=== PATIENT | female | born 1960 | race Caucasian/White ===

== ENCOUNTER 2016-05-04 06:50 | Observation (INO) | payer OTHER ==
[~2016-05-04] VITALS: Ht 175.3 cm; Wt 71.7 kg
[2016-05-04 07:49] LABS: HEMATOCRIT 41.9 % (36.0-46.0); MCH 31.6 PG (29.0-34.0); MCHC 34.1 G/DL (30.0-36.0); MCV 92.5 FL (83-99); MEAN PLAT.VOLUME 10.6 uM^3 (9.5-12.4); PLATELET COUNT 211 K/uL (156-360); RBC DIS.WIDTH-CV 12.7 % (11.8-14.6); RBC DIS.WIDTH-SD 41.9 % (39-53); RED BLOOD COUNT 4.53 M/uL (3.80-5.20); WHITE BLOOD COUNT 6.5 K/uL (4.1-10.2)
[2016-05-04 08:27] LABS: ANION GAP 8 MEQ/L (2-14); CHLORIDE 107 MEQ/L (99-109); POTASSIUM 3.9 MEQ/L (3.7-5.4); SAMPLE HEMOLYSIS CHECK 0; SAMPLE ICTERIC CHECK 0; SAMPLE LIPEMIA CHECK 0; SODIUM 142 MEQ/L (136-147)
[2016-05-04 08:32] LABS: GFR ESTIMATE (CALCULATED) > 59 mL/min/; GLUCOSE 84 mg/dL (70-99); UREA NITROGEN (BUN) 21 mg/dL (9-23)
[2016-05-04 08:35] LABS: TROP-I INTERPRETATION NEGATIVE; TROPONIN-I < 0.01 ng/mL (0.0-0.30)
[2016-05-04] MEDS ORDERED: ONE DAILY FOR1 EAC3 PO (10:36)
[2016-05-04] MEDS ORDERED: CALCIUM 600 +1 EAC9 PO (10:37)
[2016-05-04] MEDS ORDERED: POTASSIUM-9999 MG PO (10:38)
[2016-05-04] MEDS ORDERED: VITAMIN D31000 UNIT PO (10:38)
[2016-05-04] MEDS ORDERED: COLACE100 MG PO (10:39)
[2016-05-04 14:57] VITALS: BP 132/70
[2016-05-04 18:25] LABS: TROP-I INTERPRETATION NEGATIVE; TROPONIN-I < 0.01 ng/mL (0.0-0.30)
[2016-05-04 18:41] LABS: HDL CHOLESTEROL 42 MG/DL (Desirable>=50); LDL CHOLESTEROL 133 mg/dL (Desirable<100); NON-HDL CHOLESTEROL 149 mg/dL (Desirable<160); TOTAL CHOLESTEROL 191 mg/dL (Desirable<200); TRIGLYCERIDES 82 MG/DL (Normal: <150)
[2016-05-04 18:55] LABS: Estimated Average Glucose 117 mg/dL (70-123); HEMOGLOBIN A1c (GLYCOHEMOGLOB) 5.7 % HGB (Below 5.7)
[2016-05-04 19:00] VITALS: BP 115/70
[2016-05-04 22:20] LABS: TROP-I INTERPRETATION NEGATIVE; TROPONIN-I < 0.01 ng/mL (0.0-0.30)
[2016-05-05 05:06] VITALS: BP 133/80
[2016-05-05 07:40] VITALS: BP 108/63
[2016-05-05 11:33] VITALS: BP 128/69
[2016-05-05] MEDS ORDERED: ATORVASTATIN CA20 MG PO (12:03)
[2016-05-05] MEDS ORDERED: TOPIRAMATE25 MG PO (12:03)
== END 2016-05-05 15:59 | disposition home or self-care (01) ==
LOC: EME 06:50 → 5WEST 12:48 → EDOF 12:48 → 5WEST 14:45
PROVIDERS: Internal Medicine
DX: R07.9 Chest pain, unspecified (principal); R93.0 Abnormal findings on diagnostic imaging of skull and head, not elsewhere classified; I65.23 Occlusion and stenosis of bilateral carotid arteries; R42 Dizziness and giddiness; R26.89 Other abnormalities of gait and mobility; F17.200 Nicotine dependence, unspecified, uncomplicated; Z83.3 Family history of diabetes mellitus; Z82.3 Family history of stroke
CPT/HCPCS: 70450; 71020; 80048; 80061; 83036; 84443; 84484; 85027; 93005; 93306; 93880; 93971; 99202; 99281; 99284; G0378; J7030